=== PATIENT | male | born 1980 | race Caucasian/White ===

== ENCOUNTER → 2019-11-07 10:24 | Outpatient (CLI) | payer SELFPAY ==
[2015-11-30 08:28] VITALS: BMI 25.7
[2019-11-07 11:08] LABS: Absolute Lymphocyte Count 1.49 X10^3/uL (0.83-4.51); Absolute Neutrophil Count 2.2 X10^3/uL (2.0-7.7); Basophil# 0.03 X10^3/uL; Basophil% 0.6 % (0-1); Eosinophil# 0.23 X10^3/uL; Eosinophils% 4.9 % (0-5); Hematocrit 42.6 % (40-54); Hemoglobin 14.3 g/dL (13.0-16.5); Lymphocyte # 1.49 X10^3/ul (4.0); Mean Corp Hgb Conc 33.6 g/dL (32-36); Mean Corpuscular Hgb 30.7 pg (27.0-32.0); Mean Corpuscular Volume 91.4 fL (80-94); Mean Platelet Vol. 9.8 fl (6.2-12.0); Monocyte% 15.1 % (0-10); NRBC Flagged by Analyzer 0 % (0-5); Neutrophil # 2.15 X10^3/uL (2.7-7.7); Neutrophil % 46.3 % (47-70); Platelet Count 181 K/mm3 (150-450); RBC Distribution Width CV 12.9 % (11.6-14.6); RBC Distribution Width SD 42.4 fl (35.1-43.9); Red Blood Count 4.66 M/mm3 (4.6-6.2); White Blood Count 4.7 K/mm3 (4.4-11.0)
[2019-11-07 11:21] LABS: Color, Urine Yellow (Yellow); Glucose, Dipstick Normal (Normal); Ketone-Dipstick 5 mg/dl (Negative); Leukocyte Esterase-Dipstick Negative /ul (Negative); Nitrite-Dipstick Negative (Negative); Occult Blood-Urine Negative /ul (Negative); Protein-Dipstick Negative (Negative); Urine Bilirubin Dipstick Negative (Negative); Urine Clarity Sl. Cloudy (Clear); Urine Urobilinogen Normal (Normal)
[2019-11-07 11:41] LABS: ALB/GLOB Ratio 0.9 RATIO (0.9-2.4); AST(SGOT) 45 U/L (15-37); Alanine Aminotransfer ALT/SGPT 92 U/L (16-61); Albumin, Serum 3.6 g/dL (3.2-5.0); Alkaline Phosphatase 106 U/L (45-117); Anion Gap 5 (5-15); BUN 15 mg/dL (7-18); BUN/Creat Ratio 16.1 RATIO (10-20); Calcium,Total 8.8 mg/dL (8.5-10.1); Chloride 109 mmol/L (98-107); Cholesterol 230 mg/dL (200); Creatinine, Serum 0.93 mg/dL (0.70-1.30); EST Glomerular Filtration Rate 95 mL/min (>60); Est Glom Filt Rate - Afr Amer 115 mL/min (>60); Globulin 3.9 g/dL (2.2-4.2); Glucose 124 mg/dL (74-106); High Density Lipoprotein 31 mg/dL; Potassium 4.1 mmol/L (3.5-5.1); Protein, Total 7.5 g/dL (6.4-8.2); Sodium Level 139 mmol/L (136-145); Triglycerides 434 mg/dL
== END ==
PROVIDERS: PCP Family Medicine; Visit Provider Family Medicine
DX: Z00.00 Encounter for general adult medical examination without abnormal findings (principal); I10 Essential (primary) hypertension
CPT/HCPCS: 36415; 80053; 80061; 81002; 85025

== ENCOUNTER 2020-06-27 18:30 | Outpatient (RCR) | payer BC, SELFPAY ==
--- NOTE | 2020-05-11 13:59 | HP.OTEVAL_ITS ---
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 Date of Evaluation: 05/09/20 Occupational Therapist: Lona Anne, OTR/Vahid, CHT - Subjective This 40 year old male was seen for OT eval with dx of sagittal band rupture at metacarpophalangeal joint. pt arrives to session states he has struggled with pain for a few months- states he was referred to hand specialist for 2nd opinion- dx was made MF sagittal band tupture at metacarpophalangeal joint. pt arrives today for custom relative motion ring splint - Pain right MF 3 - ROM MP: right MF -5/80 left 0/90 PIP: right MF 0/85 left 0/100 DIP: right 0/60 left 0/90 ROM Comments: pt demo with limite MP ROM with pain - Strength Director Card: right 95# with pain left 120 Lateral Pinch: right 10# left 22# Tripod Pinch: right 16# left 18# - Quick DASH-Disab of Arm,Shoulder& Hand Quick DASH Score: 51.6650 - Goals Goal:: pt will demo a increase in right computer discovery teacher strength by 30# or greater to return pt to PLOF Goal:: pt will demo a increase in right MF MCP flex by 10* to increase pts ind. with ADLS and IADLs Goal:: pt will report pain no greater than 1/10 with use of right UE with ADls and IADls by d/c Goal:: Pt will demo ind. Donning/doffing of custom orthosis by end of 1st session. Pt will demonstrate understanding of orthosis use and precautions by end of 1st session and demonstrate knowledge of returning to clinic if orthosis needs adj. to increase comfort by end of 1st session. - Rehabilitation General Assessment: pt demo need for sagittal band rupture of right MF. Pt demo need for skilled OT services to shawn. custom relative motion ring orthosis. Today therapist shawn. and ed. pt on use and care. therapist advised pt to return if any irritation occured from use of othosis. pt demo understanding and agree to POC. Rehabilitation Potential: Good - Anticipated Interventions A/AAROM/PROM, Strengthening, Triggerpoint Release, Desensitization, Modalities, Orthoses, Joint Protection/Energy Conservation, Ergonomic Education - Visit Plan Frequency: 1x/Week Duration: 4 Weeks TEXT: Thank you for the opportunity to evaluate your patient. For Medicare and Medicare HMO plans, please review the plan of care and approve it. It will need to be FAXED BACK to us at [phone] for Medicare purposes. Please let me know if there are questions or concerns regarding this plan of care. Physician Signature: Date:
--- NOTE | 2020-08-29 10:22 | HP.OT.NRP ---
CASEY VILLANUEVA was seen in my office for initial evaluation on 05/09/20. The following Plan of Care was established for this patient: Initial Frequency: 1x/Week Initial Duration: 4 Weeks Plan: cont with US and strengthening finger adductors Anticipated Interventions: A/AAROM/PROM, Strengthening, Triggerpoint Release, Desensitization, Modalities, Orthoses, Joint Protection/Energy Conservation, Ergonomic Education This patient was last seen in our office 06/27/20. Pertinent comments regarding their Occupational therapy will appear below: Pt was seen in OT for 5 visits- pt was uing relative motion orthosis while at work- pt has not scheduled further apts and due to time lapse in services pt. D/c at this time. At this point I will be discontinuing this patient from occupational therapy. I would be happy to see this patient again in the future if found appropriate by the physician. Thank you! Lona Anne, OTR/L, CHT
== END 2020-06-27 19:00 | disposition home or self-care (01) ==
LOC: OT 18:30
PROVIDERS: PCP Family Medicine
DX: S63.659D Sprain of metacarpophalangeal joint of unspecified finger, subsequent encounter (principal)
CPT/HCPCS: 97035; 97166; 97530; 97760; 97763

== ENCOUNTER 2022-11-12 15:00 | Emergency (ER) | payer BC, SELFPAY ==
[2022-11-12 15:01] VITALS: BP 154/100; PULSE 130; RESP 18; TEMP 36.1; O2SAT 96; BMI 30.5
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
[2022-11-12 15:34] LABS: Basophil# 0.02 X10^3/uL; Basophil% 0.3 % (0-1); Eosinophil# 0.03 X10^3/uL; Eosinophils% 0.4 % (0-5); Hematocrit 38.3 % (40-54); Hemoglobin 12.9 g/dL (13.0-16.5); Lymphocyte % 15.6 % (19-41); Mean Corp Hgb Conc 33.7 g/dL (32-36); Mean Corpuscular Hgb 31.5 pg (27.0-32.0); Mean Corpuscular Volume 93.6 fL (80-94); Mean Platelet Vol. 10.5 fl (6.2-12.0); Monocyte# 0.85 X10^3/uL; NRBC Flagged by Analyzer 0 % (0-5); Neutrophil # 5.04 X10^3/uL (2.7-7.7); Neutrophil % 71.3 % (47-70); Platelet Count 141 K/mm3 (150-450); RBC Distribution Width CV 13.3 % (11.6-14.6); RBC Distribution Width SD 45.5 fl (35.1-43.9); Red Blood Count 4.09 M/mm3 (4.6-6.2); White Blood Count 7.1 K/mm3 (4.4-11.0)
[2022-11-12 15:47] LABS: AST(SGOT) 62 U/L (15-37); Alanine Aminotransfer ALT/SGPT 52 U/L (16-61); Albumin, Serum 3.7 g/dL (3.2-5.0); Alkaline Phosphatase 118 U/L (45-117); Anion Gap 11 (5-15); BUN 17 mg/dL (7-18); BUN/Creat Ratio 13.8 RATIO (10-20); Calcium,Total 8.9 mg/dL (8.5-10.1); Chloride 103 mmol/L (98-107); Creatinine, Serum 1.23 mg/dL (0.70-1.30); EST Glomerular Filtration Rate 68 mL/min (>60); Est Glom Filt Rate - Afr Amer 82 mL/min (>60); Estimated Creatinine Clearance 87.51 ml/min; Globulin 3.8 g/dL (2.2-4.2); Glucose 238 mg/dL (74-106); Potassium 4.4 mmol/L (3.5-5.1); Protein, Total 7.5 g/dL (6.4-8.2); Sodium Level 136 mmol/L (136-145)
[2022-11-12] MEDS: morphine 8 MG/ML Syringe IV (16:01)
[2022-11-12] MEDS: Ondansetron 4 MG/2 ML Vial IV (16:01)
[2022-11-12] MEDS: fentaNYL 100 MCG/2 ML Ampul 50 MCG IV (17:09)
[2022-11-12 17:15] VITALS: BP 160/89; PULSE 129; RESP 14; O2SAT 98
[2022-11-12 18:16] VITALS: PULSE 125; RESP 18; O2SAT 98
[2022-11-12 18:18] VITALS: BP 148/100; PULSE 125; RESP 18; O2SAT 95
== END 2022-11-12 18:24 | disposition short-term general hospital (02) ==
LOC: ED 15:30
PROVIDERS: Emergency Provider Emergency Medicine; PCP Family Medicine; Visit Provider Emergency Medicine
DX: S36.039A Unspecified laceration of spleen, initial encounter (principal); F17.210 Nicotine dependence, cigarettes, uncomplicated; S30.1XXA Contusion of abdominal wall, initial encounter; I10 Essential (primary) hypertension; Y04.0XXA Assault by unarmed brawl or fight, initial encounter; K66.1 Hemoperitoneum; S00.11XA Contusion of right eyelid and periocular area, initial encounter; Z79.899 Other long term (current) drug therapy
CPT/HCPCS: 74177; 80053; 85025; 96374; 96375; 99284; J7030; Q9967; A4216; J2405

== ENCOUNTER 2023-07-08 05:46 | Emergency (ER) | payer BC, SELFPAY ==
[2023-07-08 05:48] VITALS: BP 191/101; PULSE 93; RESP 16; TEMP 36.6; O2SAT 97; BMI 29.3
--- NOTE | 2023-07-08 06:15 | EDS_ITS ---
HPI History of Present Illness Chief Complaint: Other, Pain/Inj Informant: patient Narrative Narrative: Patient is a 43-year-old male with past medical history of hypertension. He states that over the past 3 days he has been having neck pain with no known injury. He states it is difficult to turn or bend his neck. He also reports he feels pain when he swallows but he denies any fevers or chills. He denies any inability to swallow just that it is painful to do so. He denies any known sick contacts. He states he went to work this morning and had a hard time doing his job as he cannot turn his head secondary to the pain and therefore comes in for evaluation. [facility] Medical History (Updated 07/08/23 @ 06:[address] Elias Kuhn DO) HTN (hypertension) Pneumothorax Home Medications benzonatate 100 mg capsule 100 - 200 mg (1 - 2 x 100 mg) PO TID PRN PRN Cough ##20 11/30/15 [Rx Last Taken Unknown] etodolac 300 mg capsule 300 mg PO TIDCM ##30 11/30/15 [Rx Last Taken Unknown] levofloxacin 750 mg tablet (Levaquin) 750 mg PO DAILY #7 tabs 11/30/15 [Rx Last Taken Unknown] methocarbamol 500 mg tablet 1,000 mg (2 x 500 mg) PO 4X/DAY PRN PRN Muscle pain/spasm #56 tabs 07/08/23 [Rx Last Taken Unknown] oxycodone-acetaminophen 5 mg-325 mg tablet (Percocet) 1 tab PO Q6H PRN pain 3 days #12 tabs 07/08/23 [Rx Last Taken Unknown] Allergy/AdvReac Type Severity Reaction Status Date / Time No Known Allergies Allergy Verified 11/12/22 15:01 Social History Smoking Status: Current every day smoker tobacco type: cigarettes ROS ROS ED Constitutional Constitutional ED: Denies chills or fever(s) Eyes Eyes: Denies change in vision ENT ENT ED: Reports sore throat; Denies rhinorrhea Cardiovascular Cardiovascular: Denies chest pain Respiratory/Chest Respiratory/Chest: Denies cough or dyspnea Gastrointestinal Gastrointestinal: Denies abdominal pain, diarrhea, nausea or vomiting Genitourinary Genitourinary ED: Denies dysuria Musculoskeletal Musculoskeletal: Reports neck pain Integumentary Denies rash Neurologic Neurologic: Denies headache(s) or paresthesias Hematologic/Lymphatic Hematologic/Lymphatic: Denies easy bleeding or easy bruising EXAM Physical Exam Const Vital Signs: 07/08/23 05:48 07/08/23 05:51 07/08/23 06:27 Temperature 97.8 F Temperature Source Temporal Pulse Rate 93 87 Respiratory Rate 16 16 Respiratory Pattern Normal Blood Pressure 191/101 H 158/97 H Blood Pressure Mean 131 117 Pulse Ox 97 97 Oxygen Delivery Method Room Air Positive well nourished and well developed General Appearance ED: well developed; Negative for pallor HEENT Reports moist mucous membranes HEENT Narrative: No erythema noted in the posterior pharynx no hard palate petechiae no trismus no change in voice or difficulty with secretions. No tonsil hypertrophy noted either. Eyes PERRL and EOMs intact bilaterally General Eye ED: Negative for scleral icterus Neck Neck Narrative: No bony deformity or step-off of the cervical spine no midline pain on palpation. Patient has bilateral paracervical tension and spasm noted greatest on the right. There is increased pain with side bending and rotation. Negative Spurling sign bilaterally Resp normal respiratory effort and clear to auscultation bilaterally Cardio regular rate and regular rhythm Extremity normal to inspection Neuro oriented x3, CN's II-XII intact bilaterally and no sensory deficits noted Sensorium / Orientation: alert Motor Exam: strength 5/5 throughout Psych mental status grossly normal Skin no rashes or lesions noted General Skin Exam: Negative for jaundice or pallor MDM MDM MDM Narrative Medical decision making narrative: Patient presented to the ER hypertensive but does have a past medical history of this and otherwise vitals are stable. He reported gradually increasing pain to the neck that is worse with motion over the last 3 days without any type of trauma or excessive activity. His posterior pharynx exam did not show changes concerning for peritonsillar or retropharyngeal abscess or strep throat. Without change in voice or drooling or respiratory distress concern for epi glottitis was low as well. As patient does not have midline pain concern for bony process such as a spontaneous compression fracture or spondylolisthesis is low. Patient does have decreased range of motion of the neck but there is no rash and no fever and no headache and therefore my concern for meningitis is low as well especially as symptoms have been gradually increasing for the past 3 days. At this time I do feel symptoms are related to a cervical strain and spasm. Therefore low concern for an infectious process or obstructive process I do not feel there is need for imaging or laboratory studies. Patient will be started on medication for muscle tension and spasm and he does agree to return if he develops worsening symptoms. However at this time as physical exam is most consistent with cervical spasm and strain he is otherwise safe for discharge History & Record Review Discussion w/independent historian: Patient Discharge Plan Triage Chief Complaint: Other, Pain/Inj ED Provider: Elias Kuhn Dx/Rx/DC Orders Clinical Impression: Spasm of cervical paraspinous muscle, Hypertension Instructions: ED Neck Spasm, No Trauma Prescriptions: New methocarbamol 500 mg tablet 1,000 mg PO 4X/DAY PRN PRN (Reason: Muscle pain/spasm) Qty: 56 1RF oxycodone-acetaminophen [Percocet] 5-325 mg tablet 1 tab PO Q6H PRN (Reason: pain) 3 Days Qty: 12 0RF No Action etodolac 300 MG capsule 300 mg PO TIDCM Qty: 30 0RF Rx Instructions: with food benzonatate 100 MG capsule 100 - 200 mg PO TID PRN PRN (Reason: Cough) Qty: 20 0RF levofloxacin [Levaquin] 750 MG tablet 750 mg PO DAILY Qty: 7 0RF Stand Alone Forms: ED Work / School Excuse Primary Care Provider: Raymond Salas Referrals: Raymond Salas MD [Primary Care Provider] - Activity Restrictions/Additional Instructions: Your history and physical exam is most consistent with paracervical/sternocleidomastoid muscle spasm and strain. Continue to stretch and heat your neck to help reduce pain and speed healing. Use the prescribed medications as directed for symptom control. If you develop a fever over 100.4 or a muffled/change in voice or develop the inability to swallow your saliva or have any further concerns please return for repeat evaluation. Disposition Disposition: Home, Self Care Discharge Date/Time: 07/08/23 06:28
[2023-07-08] MEDS: Ketorolac 30 MG/ML Syringe IM (06:23)
[2023-07-08] MEDS: Orphenadrine 60 MG/2 ML Ampul IM (06:24)
[2023-07-08 06:27] VITALS: BP 158/97; PULSE 87; RESP 16; O2SAT 97
== END 2023-07-08 06:28 | disposition home or self-care (01) ==
PROVIDERS: Emergency Provider Emergency Medicine; PCP Family Medicine; Visit Provider Emergency Medicine
DX: M62.838 Other muscle spasm (principal); F17.210 Nicotine dependence, cigarettes, uncomplicated; I10 Essential (primary) hypertension
CPT/HCPCS: 96372; 99282

== ENCOUNTER 2024-08-21 12:15 | Emergency (ER) | payer BC, SELFPAY ==
[2024-08-21 12:15] VITALS: BP 179/100; BP 185/104; PULSE 102; PULSE 103; RESP 20; TEMP 37.2; O2SAT 97; O2SAT 98; BMI 32.7
--- NOTE | 2024-08-21 12:35 | RAD_ITS ---
EXAM: XR CHEST, 2 VIEWS CLINICAL INDICATION: cough TECHNIQUE: Frontal and lateral views of the chest. COMPARISON: XR Chest dated 09/11/2016 FINDINGS: LUNGS AND PLEURAL SPACES: No consolidation or edema. No pneumothorax. No effusion. HEART: Normal heart size. MEDIASTINUM: See below. BONES/JOINTS: No acute abnormality. LYMPH NODES: Bilateral hilar prominence which may represent enlarged pulmonary vessels versus adenopathy. There is also widening of the superior mediastinum. RAD/Chest PA and Lateral IMPRESSION: 1. Prominence of the mediastinum and hilar structures which may represent underlying adenopathy. 2. Follow-up CT chest recommended. Electronically Signed: Bhavesh Camargo MD at 12:54 EST ,
--- NOTE | 2024-08-21 12:40 | EDS_ITS ---
HPI <ALEX Chacon - Last Filed: 08/21/24 13:46> History of Present Illness Chief Complaint: Shortness of Breath Narrative Narrative: 44-year-old male has had 3 weeks of reductive cough and wheezing. 1 week into the symptoms he went to urgent care and had negative COVID and strep test. He was prescribed Augmentin for 1 week and completed it but does not feel any better. He bought an [id number] inhaler which did not seem to help. he he has a history of sarcoidosis and has been on prednisone for about 6 months states his specialist is slowly weaning him down. He thinks he is on 7.5 mg once a day currently. He does not smoke. He has no history of asthma or COPD. His chest muscles hurt from coughing but otherwise he does not have chest pain. His girlfriend has also been coughing over the last month. [facility] <ALEX Chacon - Last Filed: 08/21/24 13:46> [facility] Medical History (Updated 08/21/24 @ 13:24 by ALEX Chacon) Pneumothorax HTN (hypertension) Home Medications ?Medication ?Instructions ?Recorded ?Last Taken ?Type benzonatate 100 mg capsule 100 - 200 mg (1 - 2 x 100 mg) PO 11/30/15 Unknown Rx TID PRN PRN Cough ##20 etodolac 300 mg capsule 300 mg PO TIDCM ##30 11/30/15 Unknown Rx levofloxacin 750 mg tablet 750 mg PO DAILY #7 tabs 11/30/15 Unknown Rx (Levaquin) methocarbamol 500 mg tablet 1,000 mg (2 x 500 mg) PO 4X/DAY 07/08/23 Unknown Rx PRN PRN Muscle pain/spasm #56 tabs oxycodone-acetaminophen 5 mg-325 1 tab PO Q6H PRN pain 3 days #12 07/08/23 Unknown Rx mg tablet (Percocet) tabs albuterol sulfate 90 mcg/actuation 1 - 2 puff inhalation Q4H PRN PRN 08/21/24 Unknown Rx aerosol inhaler (Ventolin HFA) Wheezing 30 days #1 device levofloxacin 750 mg tablet 750 mg PO DAILY 5 days #5 tabs 08/21/24 Unknown Rx prednisone 20 mg tablet 40 mg (2 x 20 mg) PO DAILY 5 days 08/21/24 Unknown Rx #10 tabs Allergy/AdvReac Type Severity Reaction Status Date / Time No Known Allergies Allergy Verified 08/21/24 12:16 Social History Smoking Status: Current every day smoker tobacco type: cigarettes ROS <ALEX Chacon - Last Filed: 08/21/24 13:46> ROS ED ROS Narrative Constitutional: Negative for fever, chills. CVS: Negative for chest pain. Respiratory: Negative for cough, wheezing. EXAM <ALEX Chacon - Last Filed: 08/21/24 13:46> Physical Exam Narrative Exam Narrative: CONST: Patient sitting in no acute distress. EYES: Normal inspection. NECK: Normal inspection. RESP: Able to speak in full sentences in no distress, frequent cough, expiratory wheezing throughout lung cameron. CVS: Regular rate and rhythm, no murmur, no gallop. SKIN: Color normal, no rash, warm, dry, intact. EXTREMITIES: Normal appearance, no pedal edema. NEURO: Alert and answering questions appropriately. PSYCH: Normal affect. Const Vital Signs: 08/21/24 12:15 08/21/24 12:15 08/21/24 13:09 Temperature 99 F Temperature Source Temporal Pulse Rate 102 H 103 H 104 H Respiratory Rate 20 H 20 H 20 H Respiratory Pattern Tachypnea Blood Pressure 179/100 H 185/104 H Blood Pressure Mean 126 131 Pulse Ox 97 98 Oxygen Delivery Method Room Air Room Air <Dr. Daniel Eason DO - Last Filed: 08/21/24 13:27> Physical Exam Const Vital Signs: 08/21/24 12:15 08/21/24 12:15 08/21/24 13:09 Temperature 99 F Temperature Source Temporal Pulse Rate 102 H 103 H 104 H Respiratory Rate 20 H 20 H 20 H Respiratory Pattern Tachypnea Blood Pressure 179/100 H 185/104 H Blood Pressure Mean 126 131 Pulse Ox 97 98 Oxygen Delivery Method Room Air Room Air MDM <ALEX Chacon - Last Filed: 08/21/24 13:46> MDM MDM Narrative Medical decision making narrative: Differential: Bronchitis, pneumonia Patient has had 3 weeks of productive cough and wheezing. He appears well and nontoxic. He is hypertensive and heart rate was 102 with otherwise normal vital signs. He speaking full sentences and 97% on room air. Lungs have diffuse expiratory wheezing throughout he has a frequent cough so I ordered a DuoNeb and a chest x-ray. CXR shows prominent hilar structures likely from his sarcoidosis but no infiltrate. Recommended a follow-up CT chest but I do not think this is emergent. He had improvement after the DuoNeb. I prescribed Levaquin, prednisone burst 40 mg x 5 days and then he can go back to his lower chronic dose, and an albuterol inhaler. I recommended he follow-up with his hospice bereavement coordinator. I have personally performed a face to face assessment of the patient and have reviewed the BLADIMIR Note. I performed a substantive portion of the visit including all aspects of the following. My pro findings include: History is [patient presents to the emergency department with complaint of cough and shortness of breath. He has a history of sarcoidosis. He sees a hospice bereavement coordinator. Currently on prednisone being weaned off and currently takes 7 mg a day. Patient states that he started with a cough about 3 weeks ago and went to urgent care and was tested for COVID and was negative at that time. Patient was treated with Augmentin but does not feel like he got any better. He continues to cough up green phlegm. He complains of shortness of breath with activity. Patient states his girlfriend also has been sick for about a month.] Exam is [HEENT-PERRLA, EOMI. Cranial nerves II through XII grossly intact. TMs clear. Mucous membranes moist. No adenopathy. Cardiovascular-regular rate and rhythm without murmur or ectopy Lungs-good aeration bilaterally with diffuse expiratory wheezes bilaterally. No significant tachypnea or accessory muscle use or retractions. Abdomen-normoactive bowel sounds, soft, nontender, no rebound or rigidity, no peritoneal signs. Extremities-intact ?4, normal range of motion, normal pulses, atraumatic] Medical Decison Making [patient presents with cough and concern for pneumonia. He was given a DuoNeb aerosol. Chest x-ray obtained showed some adenopathy but no evidence of infiltrate. This point I suspect the prominent mediastinum may be related to his sarcoidosis history. He is following with a hospice bereavement coordinator. Will cover him with Levaquin to cover atypical bacteria. Will start him prednisone burst 40 mg daily for the next 5 days. Patient advised to follow-up with his hospice bereavement coordinator within the next 3 to 5 days. I suspect he has an asthmatic bronchitis or atypical pneumonia.] Other additions or changes: [None] Radiography Diagnostic Testing: Clinical Impression(s) from Imaging Studies Chest X-Ray 08/21/24 12:35 IMPRESSION: 1. Prominence of the mediastinum and hilar structures which may represent underlying adenopathy. 2. Follow-up CT chest recommended. Electronically Signed: Bhavesh Camargo MD at 12:54 EST , <Dr. Daniel Eason, DO - Last Filed: 08/21/24 13:27> [facility] Narrative Medical decision making narrative: I have personally performed a face to face assessment of the patient and have reviewed the BLADIMIR Note. I performed a substantive portion of the visit including all aspects of the following. My pro findings include: History is [patient presents to the emergency department with complaint of cough and shortness of breath. He has a history of sarcoidosis. He sees a pulmo nologist. Currently on prednisone being weaned off and currently takes 7 mg a day. Patient states that he started with a cough about 3 weeks ago and went to urgent care and was tested for COVID and was negative at that time. Patient was treated with Augmentin but does not feel like he got any better. He continues to cough up green phlegm. He complains of shortness of breath with activity. Patient states his girlfriend also has been sick for about a month.] Exam is [HEENT-PERRLA, EOMI. Cranial nerves II through XII grossly intact. TMs clear. Mucous membranes moist. No adenopathy. Cardiovascular-regular rate and rhythm without murmur or ectopy Lungs-good aeration bilaterally with diffuse expiratory wheezes bilaterally. No significant tachypnea or accessory muscle use or retractions. Abdomen-normoactive bowel sounds, soft, nontender, no rebound or rigidity, no peritoneal signs. Extremities-intact ?4, normal range of motion, normal pulses, atraumatic] Medical Decison Making [patient presents with cough and concern for pneumonia. He was given a DuoNeb aerosol. Chest x-ray obtained showed some adenopathy but no evidence of infiltrate. This point I suspect the prominent mediastinum may be related to his sarcoidosis history. He is following with a hospice bereavement coordinator. Will cover him with Levaquin to cover atypical bacteria. Will start him prednisone burst 40 mg daily for the next 5 days. Patient advised to follow-up with his hospice bereavement coordinator within the next 3 to 5 days. I suspect he has an asthmatic bronchitis or atypical pneumonia.] Other additions or changes: [None] Radiography Diagnostic Testing: Clinical Impression(s) from Imaging Studies Chest X-Ray 08/21/24 12:35 IMPRESSION: 1. Prominence of the mediastinum and hilar structures which may represent underlying adenopathy. 2. Follow-up CT chest recommended. Electronically Signed: Bhavesh Camargo MD at 12:54 EST , Discharge Plan Triage Chief Complaint: Shortness of Breath ED Midlevel Provider: Iona Barber ED Provider: Daniel Eason Dx/Rx/DC Orders Clinical Impression: Bronchitis Instructions: ED Bronchitis with Wheezing (Adult) Prescriptions: New albuterol sulfate [Ventolin HFA] 90 mcg/actuation HFA aerosol inhaler 1 - 2 puff inhalation Q4H PRN PRN (Reason: Wheezing) 30 Days Qty: 1 0RF prednisone 20 mg tablet 40 mg PO DAILY 5 Days Qty: 10 0RF levofloxacin 750 mg tablet 750 mg PO DAILY 5 Days Qty: 5 0RF No Action etodolac 300 MG capsule 300 mg PO TIDCM Qty: 30 0RF Rx Instructions: with food benzonatate 100 MG capsule 100 - 200 mg PO TID PRN PRN (Reason: Cough) Qty: 20 0RF levofloxacin [Levaquin] 750 MG tablet 750 mg PO DAILY Qty: 7 0RF methocarbamol 500 mg tablet 1,000 mg PO 4X/DAY PRN PRN (Reason: Muscle pain/spasm) Qty: 56 1RF oxycodone-acetaminophen [Percocet] 5-325 mg tablet 1 tab PO Q6H PRN (Reason: pain) 3 Days Qty: 12 0RF Primary Care Provider: Raymond Salas Referrals: Raymond Salas MD [Primary Care Provider] - Activity Restrictions/Additional Instructions: I am increasing her prednisone for the next 5 days and then you can go back down to your typical daily dose. Use the inhaler as needed for wheezing and shortness of breath. I also prescribed antibiotics. Please follow-up with your hospice bereavement coordinator. Print Language: Malawian
[2024-08-21] MEDS: Ipratropium/Albuterol Sulfate 3 ML AMPUL.NEB INHALATION (13:08)
[2024-08-21 13:09] VITALS: PULSE 104; RESP 20
[2024-08-21 14:22] VITALS: O2SAT 97
[2024-08-21 14:23] VITALS: BP 142/69; PULSE 78; RESP 20; TEMP 36.3; O2SAT 99
== END 2024-08-21 14:24 | disposition home or self-care (01) ==
PROVIDERS: Emergency Provider Emergency Medicine; PCP Family Medicine; Visit Provider Emergency Medicine
DX: J40 Bronchitis, not specified as acute or chronic (principal); I10 Essential (primary) hypertension; F17.210 Nicotine dependence, cigarettes, uncomplicated; D86.9 Sarcoidosis, unspecified; Z79.51 Long term (current) use of inhaled steroids
CPT/HCPCS: 71046; 94640; 99282